=== PATIENT | female | born 1995 | race African-American/Black ===

== ENCOUNTER 2018-09-10 19:20 | Emergency (ER) | payer OTHER ==
[~2018-09-10] VITALS: Ht 165.1 cm; Wt 63.5 kg
[2018-09-10 19:28] VITALS: BP 121/79
[2018-09-10 19:33] LABS: URINE BLOOD 3+ (Negative); URINE CLARITY CLEAR; URINE COLOR YELLOW; URINE GLUCOSE-RANDOM* NEGATIVE (Negative); URINE KETONES TRACE (Negative); URINE LEUKOCYTES-REFLEX 2+ (Negative); URINE NITRITE-REFLEX NEGATIVE (Negative); URINE PROTEIN (DIPSTICK) 2+ (Negative); URINE SPECIFIC GRAVITY >= 1.030 (1.005-1.035); URINE UROBILINOGEN 0.2 E.U./dl (0.2-1.0)
[2018-09-10 19:34] LABS: ICTOTEST (BILI CONFIRMATORY) Negative (Negative); URINE BILIRUBIN NEGATIVE (Negative)
[2018-09-10 19:42] LABS: CASTS None Seen /LPF (None Seen); SQUAMOUS 0-3 Few /LPF (0-3); URINE RBC >20 Many /HPF (0-2); URINE WBC-REFLEX >25 Many /HPF (0-5)
[2018-09-10 19:43] LABS: CRYSTALS None Seen /LPF (None Seen)
[2018-09-10] MEDS ORDERED: KEFLEX500 M1 PO (20:00)
[2018-09-10] MEDS ORDERED: PHENAZOPYRIDIN200 M2 PO (20:00)
== END 2018-09-10 20:07 | disposition home or self-care (01) ==
LOC: ER 19:20
PROVIDERS: Physician Assistant
DX: N39.0 Urinary tract infection, site not specified (principal); F17.210 Nicotine dependence, cigarettes, uncomplicated

== ENCOUNTER 2018-11-20 15:02 | Emergency (ER) | payer OTHER ==
[~2018-11-20] VITALS: Ht 165.1 cm; Wt 59.0 kg
[~2018-11-20 15:02] MED LIST: KEFLEX500 M1 PO; PHENAZOPYRIDIN200 M2 PO
[2018-11-20] MEDS ORDERED: NAPROSYN500 MG PO (15:16)
[2018-11-20] MEDS ORDERED: ULTRAM 50MG TAB50 MG PO (15:16)
[2018-11-20] MEDS ORDERED: PENICILLIN V P500 MG PO (15:16)
[2018-11-20 15:35] VITALS: BP 119/79
== END 2018-11-20 15:36 | disposition home or self-care (01) ==
LOC: ER 15:02
DX: K01.1 Impacted teeth (principal); K05.10 Chronic gingivitis, plaque induced; F17.210 Nicotine dependence, cigarettes, uncomplicated

== ENCOUNTER 2019-04-28 12:09 | Emergency (ER) | payer OTHER ==
[~2019-04-28] VITALS: Ht 167.6 cm; Wt 54.4 kg
[~2019-04-28 12:09] MED LIST changes: +NAPROSYN500 MG PO; +PENICILLIN V P500 MG PO; +ULTRAM 50MG TAB50 MG PO
[2019-04-28 12:43] LABS: URINE BILIRUBIN NEGATIVE (Negative); URINE BLOOD NEGATIVE (Negative); URINE CLARITY SL CLOUDY; URINE COLOR YELLOW; URINE GLUCOSE-RANDOM* NEGATIVE (Negative); URINE KETONES NEGATIVE (Negative); URINE LEUKOCYTES 1+ (Negative); URINE NITRITE POSITIVE (Negative); URINE PROTEIN (DIPSTICK) NEGATIVE (Negative); URINE UROBILINOGEN 0.2 E.U./dl (0.2-1.0)
[2019-04-28 12:57] LABS: SQUAMOUS >10 Many /LPF (0-3)
[2019-04-28 12:58] LABS: BACTERIA >30 Many /HPF (None Seen); CASTS None Seen /LPF (None Seen); CRYSTALS None Seen /LPF (None Seen); URINE RBC None Seen /HPF (0-2); URINE WBC 0-5 Rare /HPF (0-5)
[2019-04-28 14:07] VITALS: BP 116/79
== END 2019-04-28 14:07 | disposition left against medical advice (07) ==
LOC: ER 12:09
PROVIDERS: Emergency Medicine
DX: Z53.21 Procedure and treatment not carried out due to patient leaving prior to being seen by health care provider (principal)